=== PATIENT | female | born 1965 | race Caucasian/White ===

== ENCOUNTER 2017-11-07 16:22 | Emergency (ER) | payer OTHER ==
[~2017-11-07 16:22] MED LIST: CIP500 PO; IBU800 PO; LOR5 PO; PHENA200 PO
[2017-11-07] MEDS ORDERED: VENL37.53 PO (16:30)
[2017-11-07] MEDS ORDERED: [UNRECOGNIZED DRUG - CODE] TD (16:30)
[2017-11-07] MEDS ORDERED: ASPIRIN 81 MG CHEW PO ONE (16:45)
[2017-11-07 16:54] LABS: PLATELET COUNT, AUTOMATED 290 K/uL (150-450)
--- NOTE | 2017-11-07 17:04 | ER Report ---
History and Physical Time Seen By MD: 16:35 Hx. of Stated Complaint: pt reports tightness in her chest and sob that started ~10 days ago, tingling in fingers, R arm and shoulder pain HPI/ROS CHIEF COMPLAINT: Chest pain HISTORY OF PRESENT ILLNESS: Patient is a 52-year-old female who presents the ED with complaint of chest tightness and shortness of breath. She states that she initially noticed some shortness of breath about 6 months ago. She has been having intermittent shortness of breath since. She states that the chest pain she has noticed in the last couple days. She describes this as a tightness of her chest and has noted some achiness into her right shoulder area. She states that she has been belching intermittently with this. She denies any nausea or vomiting. She states she has been traveling in a car for the past few days across a few states. She denies any history of lung or heart issues. She has no history of diabetes or hypertension. She quit smoking about 3-4 years ago. She denies any pain worsening with exertion. She denies any pain with deep breathing or coughing. She is not noted any palpitations. Patient denies any family history of heart issues. She has no history of blood clots. REVIEW OF SYSTEMS: Constitutional: No fever, no chills. Eyes: No discharge. ENT: No sore throat. Cardiovascular: See history of present illness. Respiratory: See history of present illness. No cough. Gastrointestinal: No abdominal pain, no vomiting. Genitourinary: No hematuria. Musculoskeletal: No back pain. Skin: No rashes. Neurological: No headache. Allergies: Coded Allergies: sulfamethoxazole (Verified Allergy, Mild, RASH AND ITCHING, 11/07/17) trimethoprim (Verified Allergy, Mild, RASH AND ITCHING, 11/07/17) Home Meds Reported Medications Venlafaxine Hcl (VENLAFAXINE HCL ER) 37.5 Mg Cap.er.24h, 37.5 MG PO QDAY 11/07/17 Estradiol (CLIMARA 0.0375 MG) 1 Each Patch.tdwk, 1 EACH TD Q7D, PATCH.WK 11/07/17 Discontinued Reported Medications Ciprofloxacin (Cipro) 500 Mg Tab, 500 MG PO BID for 10 Days 1 TAB TWICE DAILY FOR 10 DAYS 08/31/07 Acetaminophen/Hydrocodone (Lortab 5/500) 5 Mg/500 Mg Tab, 1 EA PO Q6-8H, #10 0 Refills 1 TABLET EVERY 6-8 HOURS NEEDED FOR MODERATE PAIN 08/31/07 Phenazopyridine Hcl (Pyridium) 200 Mg Tab, 200 MG PO TID for 3 Days 1 TAB THREE TIMES DAILY FOR 3 DAYS 08/31/07 Ibuprofen (Motrin) 800 Mg Tab, 800 MG PO Q8H, #30 0 Refills 1 TAB EVERY 8 HOURS NEEDED FOR PAIN 08/31/07 [None] No Conflict Check 08/31/07 Reviewed Nurses Notes: Yes Old Medical Records Reviewed: Yes Constitutional Vital Sign - Last 24 Hours 11/07/17 11/07/17 11/07/17 11/07/17 16:25 16:30 16:33 16:37 Temp 98.2 Pulse 96 95 Resp 18 B/P (MAP) 137/83 137/83 (101) 139/89 (106) Pulse Ox 96 97 O2 Delivery Room Air 11/07/17 11/07/17 11/07/17 11/07/17 16:45 16:52 17:00 17:05 Pulse 87 72 Resp 31 B/P (MAP) 120/75 (90) 132/83 (99) Pulse Ox 94 93 11/07/17 11/07/17 11/07/17 11/07/17 17:15 17:20 17:30 17:35 Pulse 77 75 Resp 6 B/P (MAP) 118/84 (95) 119/79 (92) Pulse Ox 94 94 11/07/17 11/07/17 11/07/17 11/07/17 17:45 17:50 18:00 18:05 Pulse 70 73 Resp 17 B/P (MAP) 121/83 (96) 114/72 (86) Pulse Ox 94 93 11/07/17 11/07/17 11/07/17 18:10 18:15 18:25 Pulse 87 70 Resp 25 14 B/P (MAP) 119/80 (93) Pulse Ox 94 92 Physical Exam General Appearance: The patient is alert, has no immediate need for airway protection and no signs of toxicity. Patient appears to be in no acute distress. Eyes: Pupils equal and round no pallor or injection. ENT, Mouth: Mucous membranes are moist. Respiratory: There are no retractions, lungs are clear to auscultation. Cardiovascular: Regular rate and rhythm. Gastrointestinal: Abdomen is soft and non tender, no masses, bowel sounds normal. Skin: Warm and dry, no rashes. Musculoskeletal: Neck is supple non tender. Extremities are nontender, nonswollen and have full range of motion. DIFFERENTIAL DIAGNOSIS: After history and physical exam differential diagnosis was considered for chest pain including but not limited to myocardial ischemia, pericarditis pulmonary embolus, chest wall pain, pleural inflammation and pulmonary infectious causes. Medical Decision Making Data Points Result Diagram: 11/07/17 0640 11/07/17 0640 Laboratory Hematology Test 11/07/17 06:40 11/07/17 19:40 Red Blood Count 4.93 M/uL (4.17-5.56) Mean Corpuscular Volume 88.5 fL (80.0-96.0) Mean Corpuscular Hemoglobin 31.4 pg (26.0-33.0) Mean Corpuscular Hemoglobin Concent 35.5 g/dL (32.0-36.0) Red Cell Distribution Width 13.0 % (11.5-14.5) Mean Platelet Volume 8.3 fL (7.2-11.1) Neutrophils (%) (Auto) 52.4 % (39.4-72.5) Lymphocytes (%) (Auto) 34.0 % (17.6-49.6) Monocytes (%) (Auto) 8.3 % (4.1-12.4) Eosinophils (%) (Auto) 4.6 % (0.4-6.7) Basophils (%) (Auto) 0.7 % (0.3-1.4) Nucleated RBC Relative Count (auto) 0.0 /100WBC Neutrophils # (Auto) 3.1 K/uL (2.0-7.4) Lymphocytes # (Auto) 2.0 K/uL (1.3-3.6) Monocytes # (Auto) 0.5 K/uL (0.3-1.0) Eosinophils # (Auto) 0.3 K/uL (0.0-0.5) Basophils # (Auto) 0.0 K/uL (0.0-0.1) Nucleated RBC Absolute Count (auto) 0.00 K/uL Prothrombin Time 13.2 seconds (12.0-14.4) Prothromb Time International Ratio 1.00 Activated Partial Thromboplast Time 25 seconds (23-35) D-Dimer Quantitative (PE/DVT) < 0.27 ug/ml (0-0.50) Sodium Level 139 mmol/L (137-145) Potassium Level 3.8 mmol/L (3.5-5.0) Chloride Level 101 mmol/L (98-107) Carbon Dioxide Level 24 mmol/L (22-31) Blood Urea Nitrogen 12 mg/dl (7-18) Creatinine 0.90 mg/dl (0.52-1.04) Glomerular Filtration Rate Calc > 60.0 Random Glucose 126 mg/dl (75-110) Calcium Level 10.1 mg/dl (8.4-10.2) Total Bilirubin 0.5 mg/dl (0.2-1.3) Aspartate Amino Transf (AST/SGOT) 30 U/L (0-35) Alanine Aminotransferase (ALT/SGPT) 33 U/L (0-56) Alkaline Phosphatase 86 U/L (0-126) Total Protein 8.2 gm/dl (6.3-8.2) Albumin 4.5 g/dl (3.5-5.0) Lipase 233 U/L (23-300) Troponin I < 0.012 ng/ml Chemistry Test 11/07/17 06:40 11/07/17 19:40 White Blood Count 5.8 k/uL (4.5-11.0) Red Blood Count 4.93 M/uL (4.17-5.56) Hemoglobin 15.5 g/dL (12.0-16.0) Hematocrit 43.6 % (34.0-47.0) Mean Corpuscular Volume 88.5 fL (80.0-96.0) Mean Corpuscular Hemoglobin 31.4 pg (26.0-33.0) Mean Corpuscular Hemoglobin Concent 35.5 g/dL (32.0-36.0) Red Cell Distribution Width 13.0 % (11.5-14.5) Platelet Count 290 K/uL (150-450) Mean Platelet Volume 8.3 fL (7.2-11.1) Neutrophils (%) (Auto) 52.4 % (39.4-72.5) Lymphocytes (%) (Auto) 34.0 % (17.6-49.6) Monocytes (%) (Auto) 8.3 % (4.1-12.4) Eosinophils (%) (Auto) 4.6 % (0.4-6.7) Basophils (%) (Auto) 0.7 % (0.3-1.4) Nucleated RBC Relative Count (auto) 0.0 /100WBC Neutrophils # (Auto) 3.1 K/uL (2.0-7.4) Lymphocytes # (Auto) 2.0 K/uL (1.3-3.6) Monocytes # (Auto) 0.5 K/uL (0.3-1.0) Eosinophils # (Auto) 0.3 K/uL (0.0-0.5) Basophils # (Auto) 0.0 K/uL (0.0-0.1) Nucleated RBC Absolute Count (auto) 0.00 K/uL Prothrombin Time 13.2 seconds (12.0-14.4) Prothromb Time International Ratio 1.00 Activated Partial Thromboplast Time 25 seconds (23-35) D-Dimer Quantitative (PE/DVT) < 0.27 ug/ml (0-0.50) Glomerular Filtration Rate Calc > 60.0 Calcium Level 10.1 mg/dl (8.4-10.2) Total Bilirubin 0.5 mg/dl (0.2-1.3) Aspartate Amino Transf (AST/SGOT) 30 U/L (0-35) Alanine Aminotransferase (ALT/SGPT) 33 U/L (0-56) Alkaline Phosphatase 86 U/L (0-126) Total Protein 8.2 gm/dl (6.3-8.2) Albumin 4.5 g/dl (3.5-5.0) Lipase 233 U/L (23-300) Troponin I < 0.012 ng/ml Coagulation Test 11/07/17 06:40 Prothrombin Time 13.2 seconds Prothromb Time International Ratio 1.00 Activated Partial Thromboplast Time 25 seconds D-Dimer Quantitative (PE/DVT) < 0.27 ug/ml EKG/Imaging EKG Interpretation 12 lead EK:46 Rhythm: Normal sinus rhythm, rate 78 bpm [place]: normal QRS: normal ST segments: No acute ST changes identified. There is slight T-wave inversion in V1 and V2. 12 lead EK:02 Rhythm: Normal sinus rhythm, rate 68 bpm [place]: normal QRS: normal ST segments: No acute ST changes identified. There is some slight T-wave inversion in V1 Imaging CXR: IMPRESSION: 1. No acute cardiopulmonary disease. Report Dictated By: Hai Park MD at 11/07/2017 5:03 PM Report E-Signed By: Hai Park MD at 11/07/2017 5:05 PM ED Course/Re-evaluation ED Course Will obtain labs, EKG, chest x-ray. 11/07/2017 5:50:33 pm - discussed all labs EKG and chest x-ray with patient. Everything is essentially normal. Will obtain a 3 hour delta troponin. 11/07/2017 8:07:29 pm - no change in delta troponin or repeat EKG. Discussed this all with patient. Decision to Disposition Date: November 07, 2017 Decision to Disposition Time: 20:07 Depart Departure Latest Vital Signs Vital Signs Date Time Temp Pulse Resp B/P (MAP) Pulse Ox O2 Delivery O2 Flow Rate FiO2 11/07/17 18:25 70 14 92 11/07/17 18:15 119/80 (93) 11/07/17 16:25 98.2 Room Air Impression: Primary Impression: Chest pain Condition: Improved Disposition: HOME OR SELF-CARE Patient Instructions: Chest Pain (ED), Dyspnea (ED) Additional Instructions: Stay well-hydrated. Follow-up with primary care provider in 2-3 days. If having any worsening or concerning symptoms may return to the emergency department. Problem Qualifiers Primary Impression: Chest pain Chest pain type: unspecified Qualified Codes: R07.9 - Chest pain, unspecified YOMAIRA ESCOBAR PA-C November 07, 2017 17:04
--- NOTE | 2017-11-07 17:09 | RADIOLOGY IMAGING REPORT ---
FACILITY: [facility] - [place] PATIENT NAME: Laurel Sanchez : 1965 MR: [id number] V: [id number] EXAM DATE: ORDERING PHYSICIAN: YOMAIRA ESCOBAR TECHNOLOGIST: Location: [facility] Patient: Laurel Sanchez : 1965 Visit/Account:[id number] Date of Sevice: 11/07/2017 Exam type: CHEST SINGLE AP History: Chest Pain Comparison: 11/26/2016. Findings: Both lungs are well-expanded and clear. There is no focal consolidation, pleural effusion or pneumoth orax. Heart size is normal. The osseous structures demonstrate some prominence of the distal left clavicle may represent overlapp ing structures. IMPRESSION: 1. No acute cardiopulmonary disease. Report Dictated By: Hai Park MD at 11/07/2017 5:03 PM Report E-Signed By: Hai Park MD at 11/07/2017 5:05 PM [id number]
--- NOTE | 2017-11-07 17:10 | EKG ---
FACILITY: [facility] - [place] PATIENT NAME: DEYANIRA BORREGO : [id number] MR: [id number] V: [id number] EXAM DATE: ORDERING PHYSICIAN: YOMAIRA ESCOBAR TECHNOLOGIST: JUNE Test Reason : SOB Blood Pressure : / mmHG Vent. Rate : 078 BPM Atrial Rate : 078 BPM P-R Int : 148 ms QRS Dur : 078 ms QT Int : 372 ms P-R-T Axes : 029 033 038 degrees QTc Int : 424 ms Sinus rhythm No acute appearing findings When compared with ECG of 26-NOV-2016 13:57, No significant change was found Confirmed by YEFRI HDEZ ([id number]) on 11/07/2017 6:17:40 PM Referred By: SHAWN Confirmed By:YEFRI HDEZ
[2017-11-07 20:10] VITALS: BP 132/85
--- NOTE | 2017-11-07 20:10 | EKG ---
FACILITY: [facility] - [place] PATIENT NAME: DEYANIRA BORREGO : [id number] MR: [id number] V: [id number] EXAM DATE: ORDERING PHYSICIAN: YOMAIRA ESCOBAR TECHNOLOGIST: AGUSTÍN Test Reason : CHEST PAIN Blood Pressure : / mmHG Vent. Rate : 068 BPM Atrial Rate : 068 BPM P-R Int : 146 ms QRS Dur : 080 ms QT Int : 400 ms P-R-T Axes : 039 037 044 degrees QTc Int : 425 ms Sinus rhythm No acute appearing findings Confirmed by YEFRI HDEZ ([id number]) on 11/08/2017 6:01:35 AM Referred By: Confirmed By:YEFRI HDEZ
== END 2017-11-07 20:14 | disposition home or self-care (01) ==
LOC: ER 16:26
DX: R07.89 Other chest pain (principal)
CPT/HCPCS: 71045; 82040; 82247; 82310; 82374; 82435; 82565; 82947; 83690; 84075; 84132; 84155; 84295; 84450; 84460; 84484; 84520; 85025; 85379; 85610; 85730; 93005; 99284